=== PATIENT | female | born 1990 | race Asian ===

== ENCOUNTER 2019-09-09 17:56 | Inpatient (IN) | payer OTHER ==
[2019-09-09] MEDS ORDERED: Dinoprostone* 10 MG VAG.SUPP VAGINAL ONE (20:19)
[2019-09-09] MEDS ORDERED: Lactated Ringers 1000 ML Bag* 1,000 ML IV ONE (20:52)
[2019-09-09] MEDS ORDERED: Buffered Lidocaine 1% SYRIN* 1 ML/SYRINGE INTRADERM ONE (20:52)
--- NOTE | 2019-09-09 21:01 | HP ---
General Information - Reason for Visit at 40 weeks in labor. - General Information Maternal Age: 29 Grav: 1 Para: 0 SAB: 0 IEA: 0 Estimated Due Date: 09/04/19 Determined By: LMP Gestational Age in Weeks/Days: 40 5/7 Maternal Blood Type and Rh: AB Positive - Results this Serology/RPR Result: Non-Reactive Rubella Result: Immune HBsAg Result: Negative HIV Result: Negative GBS Culture Result: Negative Past Medical History Delivery History: See Records Pertinent Past Medical History: See Records Past Medical History Comment: Pre pap smear with Ascus R/O HGSIL follow up post . Pertinent Past Surgical History: See Records Past Surgical History Comment: Eye Surgery for retinal detachment. Pertinent Family History: See Records - Antepartal Records Antepartal Records: Reviewed, Uncomplicated Review of Systems Constitutional: Uncomfortable CV Complaint: No Respiratory: Shortness of Breath: No Gastrointestinal: No Nausea/Vomiting, Normal Bowel Movement Genitourinary: No Dysuria, No Bleeding, No Leaking Fluid Musculoskeletal: No Complaint, No Epigastric Pain, Contractions - Contraction regular Q5-6 min apart Neurological: No Headache, No Visual Changes Exam Allergies/Adverse Reactions: Allergies Iodinated Contrast Media Allergy (Verified 09/09/19 17:25) Hives Vital Signs 09/09/19 18:20 Temperature 97.6 F Pulse Rate 77 Respiratory 18 Rate Blood Pressure 104/68 (mmHg) O2 Sat by Pulse 98 Oximetry - Measurements Height: 5 ft 5 in Weight: 179 lb Weight in lbs: 179.300231 Body Mass Index (BMI): 29.7 Pre- Weight: 158 lb Weight Gained This : 21 lbs and 0 ozs - Exam Breast: Breast Exam Deferred CVA: No CVA Tenderness Extremities: No Edema Heart: Normal Rhythm/Heart Sounds HEENT: No Significant Findings Lungs: Clear Bilaterally Rectal: Rectal Exam Deferred Reflexes: DTR 2+ Thyroid: No Thyromegaly - Abdominal Exam Abdomen Exam: Non-Tender, Fundal Height Consistent with Dates - Ultrasound/Biophysical Profile Biophysical Profile: Normal Reactive NST Targeted Exam Findings See L&D Outpatient Visit Provider Note for Findings: N/A Cervical Exam: 3cm Effacement: 90% Station: -1 Presenting Part: Vertex Membrane Status: Intact Bleeding/Discharge: None EFM Findings - External Monitor Findings Baseline Heart Rate: 130 External Monitor Findings: Accelerations Present, No Pattern of Variable or Late Decelerations Contractions: Moderate, < 45 Seconds Assessment/Plan - Obstetrical Risk Factors Obstetrical Risk Factors: Post-Dates - Plan Plan: Admit - Anticipate Vaginal Delivery - Date/Time of Admission Date of Admission: 09/09/19 Time of Admission: 21:00
[2019-09-09 22:14] LABS: Urine Benzodiazepine Screen None Detected (None Detect); Urine Opiates Screen None Detected (None Detect)
[2019-09-10 09:10] LABS: ABS Eosinophils 0.1 10^3/ul (0-0.6); ABS Lymphocytes 2.1 10^3/ul (1.0-4.8); ABS Monocytes 0.6 10^3/ul (0-0.8); ABS Neutrophils 4.8 10^3/ul (1.5-7.7); Hematocrit 41 % (35-47); Hemoglobin 13.7 g/dL (12.0-16.0); Lymphocyte % 27.2 %; Mean Corpuscular HGB Conc 33 g/dL (31-36); Mean Corpuscular Hemoglobin 26 pg (27-31); Mean Corpuscular Volume 78 fL (80-97); Mean Platelet Volume 8.7 fL (7.4-10.4); Nucleated Red Blood Cells % 0.1; Platelet Count 241 10^3/uL (150-450); Red Blood Count 5.29 10^6 /uL (3.70-4.87); Red Cell Distribution Width 18 % (10-15); White Blood Count 7.7 10^3/uL (3.5-10.8)
[2019-09-10] MEDS: Lactated Ringers 1000 ML Bag* 1,000 ML IV SCH ×2 (09:22→16:22)
[2019-09-10] MEDS ORDERED: Oxytocin in LR* 20 UNITS/1,000 ML BAG IVPB SCH (10:00)
[2019-09-10] MEDS ORDERED: OBEPIDURAL* 250 ML EPIDURAL ONE (22:16)
[2019-09-10] MEDS ORDERED: EPHEDrine (Pressors)* 50 MG/ML VIAL IV PUSH PRN ×2 (23:12)
[2019-09-10] MEDS ORDERED: Phenylephrine 40 MCG/ML SYRINGE IV PUSH PRN ×2 (23:12)
[2019-09-10] MEDS ORDERED: Sodium Citrate/Citric Acid* 15 ML UDC PO PRN (23:12)
[2019-09-10] MEDS ORDERED: Famotidine TAB* 20 MG PO PRN (23:12)
[2019-09-10] MEDS ORDERED: OBEPIDURAL* 250 ML EPIDURAL SCH (23:45)
[2019-09-11] MEDS ORDERED: ceFOXitin 2 GM IVPREMIX* 2 GM/50 ML BAG ONE (04:55)
[2019-09-11] MEDS ORDERED: Ondansetron INJ* 2 MG/ML VIAL ONE (05:53)
[2019-09-11] MEDS ORDERED: Lidocaine 2% w/ EPI 1:200,000* 20 ML SDV VIAL ONE (05:53)
[2019-09-11] MEDS ORDERED: Dexamethasone IV* 4 MG/ML 1 ML (4 MG) ONE (05:53)
[2019-09-11] MEDS ORDERED: Sodium Bicarbonate 8.4% VIAL* 10 ML VIAL IV ONE (05:53)
[2019-09-11] MEDS ORDERED: EPHEDrine (Pressors)* 50 MG/ML VIAL ONE (05:53)
[2019-09-11] MEDS ORDERED: ceFOXitin 2 GM IVPREMIX* 2 GM/50 ML BAG IVPB ONE (06:00)
[2019-09-11] MEDS ORDERED: Morphine PF AMP (0.5MG/ML)* 5 MG/10 ML AMP ONE (06:05)
[2019-09-11] MEDS ORDERED: diPHENhydraMINE IV* 50 MG/ML 1 ml VIAL (BENADRYL) IV PRN (06:12)
[2019-09-11] MEDS ORDERED: Naloxone* 0.4 MG/ML 1 ML VIAL IV PRN ×2 (06:12→08:37)
[2019-09-11] MEDS ORDERED: Nalbuphine* 10 MG/ML 1 ML VIAL IV PRN (06:12)
[2019-09-11] MEDS ORDERED: Ondansetron INJ* 2 MG/ML VIAL IV PRN (06:12)
[2019-09-11] MEDS ORDERED: Ketorolac INJ* 30 MG/ML 1 ML VIAL ONE (06:15)
[2019-09-11] MEDS ORDERED: OXYTOCIN* 10 UNITS/ML 1 ML VIAL ONE (06:17)
[2019-09-11] MEDS ORDERED: Witch Hazel PAD* JAR TOPICAL PRN (06:45)
[2019-09-11] MEDS ORDERED: Glycerin ADULT SUPP PR PRN (06:45)
[2019-09-11] MEDS ORDERED: Dibucaine 1% 28.35 GM TUBE PR PRN (06:45)
[2019-09-11] MEDS ORDERED: Lactated Ringers 1000 ML Bag* 1,000 ML IV SCH (07:00)
[2019-09-11] MEDS: oxyCODONE/Acetamin 5/325 MG* TAB PO ONE ×2 (08:26→08:34)
[2019-09-11] MEDS: Docusate CAP* 100 MG PO SCH ×3 (08:26→19:54)
[2019-09-11] MEDS: Simethicone TAB* 80 MG TAB.CHEW PO SCH ×3 (08:26→19:54)
[2019-09-11] MEDS ORDERED: Ketorolac INJ* 30 MG/ML 1 ML VIAL IV SCH (09:00)
[2019-09-11] MEDS: Ketorolac INJ* 30 MG/ML 1 ML VIAL IV SCH (19:55)
[2019-09-11] MEDS ORDERED: oxyCODONE TAB* 5 MG TAB PO PRN ×2 (22:14)
[2019-09-11] MEDS ORDERED: Zolpidem TAB* 5 MG PO PRN (22:14)
--- NOTE | 2019-09-12 01:21 | OP ---
CC: Taina King, certified nurse insurance loss assessor, [facility] * DATE OF OPERATION: 09/11/19 - ROOM #102 DATE OF : 86 SURGEON: Rodolfo Albarado MD GOLD BEATER: Taina King, certified nurse insurance loss assessor. ANESTHESIA: Epidural. PRE-OP DIAGNOSIS: at 41 weeks with a persistent category 2 tracing, remote from delivery. POST-OP DIAGNOSIS: at 41 weeks with a persistent category 2 tracing, remote from delivery. OPERATIVE PROCEDURE: Primary section with vacuum assistance delivery of the head. ESTIMATED BLOOD LOSS: 500 cc. SPECIMENS SENT TO PATHOLOGY: Cord blood. FLUIDS: She received 2 L of IV crystalloid fluid. URINE OUTPUT: 850 cc of clear urine. FINDINGS: Delivery of a male infant with a weight of 8 pounds and 8 ounces in the direct occiput posterior position with Apgars of 8 and 9 over clear fluid. There was a normal uterus, normal adnexa, bowel, and bladder and there were no complications. DESCRIPTION OF PROCEDURE: The patient was taken to the operating room where she was identified. She was placed on the operating table where an epidural anesthetic was obtained without difficulty. She was then placed in the supine position with a leftward tilt, prepped and draped in a normal sterile fashion. A Pfannenstiel skin incision was then made with the knife and carried through the underlying layer of fascia. The fascia was nicked in the midline, extended laterally with curved Huang scissors. The fascia was then grasped superiorly and inferiorly with Shey clamps and dissected off sharply from the rectus muscle. The rectus muscle was in the midline bluntly. The peritoneum was identified, grasped with pickups and entered sharply with Metzenbaum scissors and extended superiorly and inferiorly sharply. At this point, we introduced an Favian self-retaining retractor into the patient's abdomen. A bladder flap was created using Metzenbaum scissors and the bladder was mobilized inferiorly away from the low transverse incision which was made with a knife, extended laterally with bandage scissors. The 's head was then grasped and brought up to the incision. There was some difficulty in flexing the head and moving, therefore a vacuum was applied to the head and we were able to flex and deliver the baby with 1 try of vacuum. Vacuum was removed. The rest of infant's body was then delivered. The cord was clamped and cut and the was handed off to awaiting director of veterans affairs. Cord bloods were obtained. The placenta was then removed manually. The uterus was then cleared of all clot and debris using moist laparotomy sponges. The uterine incision was closed in situ using 0 Polysorb suture in a running locked fashion with a second imbricating layer of 0 Polysorb suture with good hemostasis noted. The gutters remained clear of all clot and debris using moist laparotomy sponges. All the sponges were then removed from the patient's abdomen. The Favian retractor was removed from the patient's abdomen as well. The peritoneum was then closed using 3-0 Polysorb suture in a running fashion. The fascia was closed using 0 Polysorb suture in a running fashion and the skin was closed with a Terrence's fascia 3-0 Polysorb suture interrupted stitches and a subcuticular 4-0 Monocryl stitch. The patient tolerated the procedure well. Sponge, lap, and needle counts were correct x2. She was then transferred to the recovery room area in stable condition. [id number]/[facility] #: [id number] NISHI
[2019-09-12] MEDS: Ketorolac INJ* 30 MG/ML 1 ML VIAL IV SCH ×3 (04:06→09:57)
[2019-09-12] MEDS ORDERED: Acetaminophen TAB* 325 MG PO PRN (06:46)
[2019-09-12] MEDS ORDERED: Ibuprofen TAB* 600 MG PO PRN (06:46)
[2019-09-12 07:01] LABS: ABS Basophils 0.1 10^3/ul (0-0.2); ABS Eosinophils 0.1 10^3/ul (0-0.6); ABS Monocytes 1.1 10^3/ul (0-0.8); ABS Neutrophils 9.5 10^3/ul (1.5-7.7); Eosinophil % 0.5 %; Hematocrit 35 % (35-47); Hemoglobin 11.3 g/dL (12.0-16.0); Lymphocyte % 21.9 %; Mean Corpuscular HGB Conc 32 g/dL (31-36); Mean Corpuscular Hemoglobin 25 pg (27-31); Mean Corpuscular Volume 79 fL (80-97); Platelet Count 213 10^3/uL (150-450); Red Blood Count 4.48 10^6 /uL (3.70-4.87); Red Cell Distribution Width 18 % (10-15); White Blood Count 13.7 10^3/uL (3.5-10.8)
[2019-09-12] MEDS ORDERED: Ferrous Gluconate TAB* 324 MG TAB PO SCH (09:00)
[2019-09-12] MEDS: Simethicone TAB* 80 MG TAB.CHEW PO SCH ×3 (10:02→18:42)
[2019-09-12] MEDS: Docusate CAP* 100 MG PO SCH ×3 (10:02→21:04)
[2019-09-12] MEDS: Ibuprofen TAB* 600 MG PO SCH ×2 (13:24→21:04)
[2019-09-13] MEDS: Ibuprofen TAB* 600 MG PO SCH ×4 (07:13→21:13)
[2019-09-13] MEDS: Simethicone TAB* 80 MG TAB.CHEW PO SCH ×6 (07:39→21:13)
[2019-09-13] MEDS: Docusate CAP* 100 MG PO SCH ×3 (09:54→21:13)
[2019-09-14] MEDS: Ibuprofen TAB* 600 MG PO SCH ×2 (04:32→12:08)
[2019-09-14 07:43] VITALS: BP 101/79
[2019-09-14] MEDS: Simethicone TAB* 80 MG TAB.CHEW PO SCH ×2 (08:14→12:07)
[2019-09-14] MEDS: Docusate CAP* 100 MG PO SCH (08:14)
== END 2019-09-14 14:02 | disposition home or self-care (01) | DRG 788 ==
LOC: MCHOBOUT 17:56 → MCHOB 20:48
PROVIDERS: ADMIT Obstetrics & Gynecology; ATTEND Obstetrics & Gynecology
PROC: 10907ZC Drainage of Amniotic Fluid, Therapeutic from Products of Conception, Via Natural or Artificial Opening (ICD-10-PCS; 2019-09-11)
PROC: 10D00Z1 Extraction of Products of Conception, Low, Open Approach (ICD-10-PCS; principal; 2019-09-11 05:25)
DX: O48.0 Post-term pregnancy (principal); O76 Abnormality in fetal heart rate and rhythm complicating labor and delivery; Z3A.41 41 weeks gestation of pregnancy; Z37.0 Single live birth
CPT/HCPCS: 36415; 59200; 80307; 85025; 86850; 86900; 86901; A9270-GY; G0480; J0694; J1100; J1885; J2405; J2590

== ENCOUNTER 2022-06-28 05:36 | Inpatient (IN) ==
[2022-06-28 06:25] LABS: Hematocrit 41 % (35-47); Hemoglobin 13.3 g/dL (12.0-16.0); Mean Corpuscular HGB Conc 33 g/dL (31-36); Mean Corpuscular Hemoglobin 25 pg (27-31); Mean Corpuscular Volume 76 fL (80-97); Mean Platelet Volume 8.8 fL (7.4-10.4); Platelet Count 233 10^3/uL (150-450); Red Blood Count 5.38 10^6 /uL (3.70-4.87); Red Cell Distribution Width 18 % (10-15); White Blood Count 6.5 10^3/uL (3.5-10.8)
[2022-06-28] MEDS ORDERED: ceFOXitin 2 GM PREMIX 50 ML IVPB ONE (07:00)
[2022-06-28] MEDS ORDERED: Morphine PF AMP (0.5MG/ML) 5 MG/10 ML AMP ONE (07:29)
[2022-06-28] MEDS ORDERED: Ondansetron 4 mg VIAL 2 MG/ML 2 ml VIAL ONE (07:30)
[2022-06-28] MEDS ORDERED: Oxytocin 10 UNITS/ML 1 ML VIAL ONE (07:30)
[2022-06-28] MEDS ORDERED: Phenylephrine IV 10 MG/ML 1 ml VIAL ONE (07:31)
[2022-06-28] MEDS ORDERED: Ondansetron 4 mg VIAL 2 MG/ML 2 ml VIAL IV PRN (08:22)
[2022-06-28] MEDS ORDERED: Acetaminophen IV 1 GM/100ML 1,000 MG/100 ML BAG IV PRN (08:22)
[2022-06-28] MEDS ORDERED: Metoclopramide 5 MG/ML VIAL (10 mg) IV PRN (08:22)
[2022-06-28] MEDS ORDERED: Naloxone 0.4 mg VIAL 0.4 mg/ml 1 ml VIAL IV PUSH PRN (08:22)
[2022-06-28 09:17] LABS: Urine Appearance Clear; Urine Bilirubin Negative (Negative); Urine Color Straw; Urine Glucose Negative (Negative); Urine Ketones Negative (Negative)
[2022-06-28 09:18] LABS: Urine Blood Negative (Negative); Urine Nitrite Negative (Negative); Urine Protein Negative (Negative); Urine Urobilinogen 0.2 (Negative) (Negative)
[2022-06-28] MEDS ORDERED: Dibucaine 1% OINT 28.35 GM TUBE PR PRN (15:02)
[2022-06-28] MEDS ORDERED: Witch Hazel PAD JAR TOPICAL PRN (15:02)
[2022-06-28] MEDS ORDERED: Glycerin ADULT 2.4 gm SUPP PR PRN (15:02)
[2022-06-28] MEDS ORDERED: Oxytocin in LR 20,000 MILLI.UNIT/1,000 ML BAG IV SCH (15:15)
[2022-06-28] MEDS ORDERED: Lactated Ringers 1000 ml BAG 1,000 ML IV SCH (16:00)
[2022-06-29 07:25] LABS: ABS Eosinophils 0.1 10^3/ul (0-0.6); ABS Lymphocytes 1.9 10^3/ul (1.0-4.8); ABS Monocytes 0.5 10^3/ul (0-0.8); ABS Neutrophils 5.9 10^3/ul (1.5-7.7); Eosinophil % 0.7 %; Hematocrit 34 % (35-47); Hemoglobin 11.2 g/dL (12.0-16.0); Lymphocyte % 22.4 %; Mean Corpuscular HGB Conc 33 g/dL (31-36); Mean Corpuscular Hemoglobin 25 pg (27-31); Mean Corpuscular Volume 75 fL (80-97); Mean Platelet Volume 8.6 fL (7.4-10.4); Platelet Count 181 10^3/uL (150-450); Red Blood Count 4.52 10^6 /uL (3.70-4.87); Red Cell Distribution Width 18 % (10-15); White Blood Count 8.3 10^3/uL (3.5-10.8)
[2022-06-30 12:22] VITALS: BP 119/81
== END 2022-06-30 12:10 | disposition home or self-care (01) | DRG 785 ==
LOC: MCHOB 05:36
PROVIDERS: ADMIT Obstetrics & Gynecology; ATTEND Obstetrics & Gynecology